=== PATIENT | male | born 1995 | race Caucasian/White ===

== ENCOUNTER 2023-06-12 11:45 | Emergency (ER) | payer OTHER, SELFPAY ==
[2023-06-12 12:00] VITALS: BP 129/90; PULSE 76; RESP 16; TEMP 37; O2SAT 99; BMI 32.5
--- NOTE | 2023-06-12 12:09 | ED.BACK ---
HPI - Back Pain/Injury General Chief Complaint: Back Pain/Injury Stated Complaint: Back Pain; Incontinence Time Seen by Provider: 06/12/23 12:05 Source: patient and EMS History of Present Illness HPI Narrative: Patient 20-year-old male presents today from the [facility] concern for cauda equina. He has had ongoing back pain for the last 3 weeks. However for 2 weeks he has had stool incontinence. He has had difficulty with getting erections as well but he denies any urinary incontinence. He has some decreased sensation in his inner thigh. He sometimes has some difficulty walking. He has not in any sort of severe pain. He has not had any fever. He denies any injury he says it just started hurting. Related Data Previous Rx's Medication Instructions Recorded gabapentin 300 mg capsule 300 mg PO BEDTIME #30 caps 06/12/23 prednisone 20 mg tablet 40 mg (2 x 20 mg) PO DAILY #10 tabs 06/12/23 Allergies Allergy/AdvReac Type Severity Reaction Status Date / Time No Known Drug Allergies Allergy Verified 06/12/23 11:59 Patient History Social History Smoking Status: Current every day smoker Smoking Status: Current every day smoker tobacco type: cigarettes alcohol intake frequency: holidays/special occasions only Substance Use Type: does not use Exam Initial Vital Signs Initial Vital Signs: Vital Signs Temperature 98.6 F 06/12/23 12:00 Pulse Rate 76 06/12/23 12:00 Respiratory Rate 16 06/12/23 12:00 Blood Pressure 129/90 06/12/23 12:00 Pulse Oximetry 99 06/12/23 12:00 Oxygen Delivery Method Room Air 06/12/23 12:00 GENERAL: Alert pleasant 20-year-old and in no acute distress. HEENT: Head atraumatic,EOMI, pupils reactive, face symmetric, moist mucous membranes CARDIOVASCULAR: Regular rate and rhythm without murmurs, rubs or gallops. RESPIRATORY: Breath sounds equal bilaterally, no wheezes rales or rhonchi. ABDOMEN: Soft, nontender. Normoactive bowel sounds all 4 quadrants. No guarding or rebound. EXTREMITIES: Normal range of motion, no clubbing or edema. Neurovascularly intact NEUROLOGICAL: Alert and oriented x4.Normal gait and speech. Cranial nerves intact no real decreased sensation to pin point and medial thighs or lower extremity SKIN: Warm, dry, no laceration, no petechiae, no rashes or lesions. Course Orders Ordered: ED Orders 06/12/23 12:04 CBC Auto Diff [Complete Blood Count AUTO DIFF] Stat CMP [Comprehensive Metabolic Panel] Stat 06/12/23 12:15 MR lumbar spine wo/w con Stat Discontinued Medications Ketorolac Tromethamine (Ketorolac 30 Mg/Ml Vial) 15 mg IV NOW ONE Stop: 06/12/23 12:17 Last Admin: 06/12/23 12:21 Dose: 15 mg Documented By: DIANA Vital Signs Vital signs: Vital Signs - 8 hr 06/12/23 12:00 06/12/23 12:17 06/12/23 12:18 Temperature 98.6 F Pulse Rate 76 83 74 Respiratory Rate 16 Blood Pressure 129/90 Pulse Oximetry 99 99 97 Oxygen Delivery Method Room Air 06/12/23 12:18 06/12/23 12:30 06/12/23 12:30 Temperature Pulse Rate 85 Respiratory Rate Blood Pressure 123/82 121/80 Pulse Oximetry 93 Oxygen Delivery Method 06/12/23 13:00 06/12/23 13:00 06/12/23 15:38 Temperature 98.6 F Pulse Rate 80 63 Respiratory Rate 16 Blood Pressure 114/80 144/87 H Pulse Oximetry 96 97 Oxygen Delivery Method Room Air MDM - Back Pain/Injury Lab Data 06/12/23 12:04 06/12/23 12:04 Labs: Lab Results 06/12/23 Range/Units 12:04 WBC 7.4 (4.5-11.0) X10^3/uL RBC 5.20 (4.5-5.9) X10^6/uL Hgb 14.8 (13.5-17.5) g/dL Hct 43.8 (41-53) % MCV 84.3 (80-100) fL MCH 28.5 (26-34) PG MCHC 33.8 (30-36) % RDW 13.7 (11.6-14.8) % Plt Count 429 H (150-400) X10^3/uL Neut % (Auto) 56.1 (50-75) % Lymph % (Auto) 33.3 (25-40) % Shoshone % (Auto) 7.7 (3-14) % Eos % (Auto) 2.2 (2-4) % Baso % (Auto) 0.7 (0-2) % Neut # (Auto) 4100 (1682-8578) /uL Lymph # (Auto) 2500 (6683-3448) /uL Shoshone # (Auto) 600 (0-900) /uL Eos # (Auto) 200 (0-450) /uL Baso # (Auto) 0 (0-100) /uL Sodium 139 (137-145) mmol/L Potassium 4.0 (3.4-5.1) mmol/L Chloride 105 (98-107) mmol/L Carbon Dioxide 27 (22-32) mmol/L BUN 10 (9-20) mg/dL Creatinine 0.81 (0.66-1.25) mg/dL Estimated GFR > 60 (>60) mL/min BUN/Creatinine Ratio 12.3 (6-22) Glucose 97 (70-100) mg/dL Calcium 9.7 (8.4-10.2) mg/dL Total Bilirubin 0.7 (0.2-1.3) mg/dL AST 62 H (17-59) IU/L ALT 104 H (<50) IU/L Alkaline Phosphatase 53 (38-126) U/L Total Protein 8.5 H (6.3-8.2) g/dL Albumin 5.0 (3.5-5.0) g/dL Globulin 3.5 (1.7-4.1) g/dL Albumin/Globulin Ratio 1.4 (1.0-2.8) Imaging Data MR Lumbar spine: Radiologist's Impression: PROCEDURE: MR LUMBAR SPINE WO/W CON INDICATIONS: back pain the stool incontinence TECHNIQUE: Noncontrast sagittal T1 spin echo and T2 fast echo, sagittal STIR, and T2 fast spin echo through the lumbar spine. In cases with scoliosis, additional coronal T2 fast spin echo may be performed. COMPARISON: None. FINDINGS: Image quality: Excellent. Alignment and Curvature: There is normal bony alignment. Bone Marrow: Marrow is of normal overall signal. No acute vertebral body compression fractures. Spinal Cord: Conus medullaris terminates at the L1 level. Visualized cord demonstrates normal signal and size. Paraspinous Soft Tissues: No paravertebral masses. T12-L1: Normal appearance. L1-L2: Normal appearance. L2-L3: Normal appearance. L3-L4: Normal appearance. L4-L5: Mild to moderate degenerative disc height reduction and disc desiccation with a posterior transverse disc bulge that is slightly greater on the left than the right and demonstrates a small inferior border midline annular tear. No extruded disc material is associated. No impingement on the cauda equina is present. Within the low thoracic cord and conus medullaris no lesion is seen.. L5-S1: Normal appearance. IMPRESSION: L4-L5 [id number] degenerative disc disease with a posterior transverse disc bulge slightly greater on the left than the right and with a small midline annular tear at the inferior border of the disc annulus posteriorly. No extruded disc material is seen, impingement on the conus medullaris or cauda equina is not found. Dictated by: Rashid Caldwell M.D. on 06/12/2023 at 15:06 MDM Narrative Medical decision making narrative: Patient well-appearing 28-year-old male who presents with ongoing back pain for last couple of weeks. Pain is not any worse today however he does swollen incontinence no urinary incontinence or urinary retention. Blood work has been reviewed overall no clinical significant abnormality MRI has been reviewed no evidence of cauda equina but does show annular tears along with degenerative disc disease and a posterior Gallardo versus disc bulge left greater than the right Patient has no evidence of cauda equina on MRI. Recommend outpatient follow-up Discharge Plan Departure Patient Disposition: Home Clinical Impression: Degenerative disc disease Instructions: DI for Low Back Pain Activity Restrictions/Additional Instructions: *You have been diagnosed with degenerative disc disease along with bulging disc and small tear *What to do: [place] [facility] probably have limited activity until this heals. You may require orthopedic referral as well *Continue to take medications as directed Prednisone 40 mg once a day for 5 days (do not combine with ibuprofen or NSAIDs) Tylenol 1000 mg every 6 hours for [id number] pain Gabapentin 300 mg at nighttime *Follow up with your primary care provider in 2-3 days or call [phone] *Return to ER if you should have increasing pain numbness tingling injury or any new, worsening or concerning symptoms Prescriptions: New prednisone 20 mg tablet 40 mg PO DAILY Qty: 10 0RF gabapentin 300 mg capsule 300 mg PO BEDTIME Qty: 30 0RF Referrals: Miscellaneous,[facility] [Non-Staff] - Stand Alone Forms: Patient Portal/API
--- NOTE | 2023-06-12 12:15 | DI.MRI.S_ITS ---
PROCEDURE: MR LUMBAR SPINE WO/W CON INDICATIONS: back pain the stool incontinence TECHNIQUE: Noncontrast sagittal T1 spin echo and T2 fast echo, sagittal STIR, and T2 fast spin echo through the lumbar spine. In cases with scoliosis, additional coronal T2 fast spin echo may be performed. COMPARISON: None. FINDINGS: Image quality: Excellent. Alignment and Curvature: There is normal bony alignment. Bone Marrow: Marrow is of normal overall signal. No acute vertebral body compression fractures. Spinal Cord: Conus medullaris terminates at the L1 level. Visualized cord demonstrates normal signal and size. Paraspinous Soft Tissues: No paravertebral masses. T12-L1: Normal appearance. L1-L2: Normal appearance. L2-L3: Normal appearance. L3-L4: Normal appearance. L4-L5: Mild to moderate degenerative disc height reduction and disc desiccation with a posterior transverse disc bulge that is slightly greater on the left than the right and demonstrates a small inferior border midline annular tear. No extruded disc material is associated. No impingement on the cauda equina is present. Within the low thoracic cord and conus medullaris no lesion is seen.. L5-S1: Normal appearance. IMPRESSION: L4-L5 [id number] degenerative disc disease with a posterior transverse disc bulge slightly greater on the left than the right and with a small midline annular tear at the inferior border of the disc annulus posteriorly. No extruded disc material is seen, impingement on the conus medullaris or cauda equina is not found. Dictated by: Rashid Caldwell M.D. on 06/12/2023 at 15:06 Approved by: Rashid Caldwell M.D. on 06/12/2023 at 15:09
[2023-06-12 12:17] VITALS: PULSE 83; O2SAT 99
[2023-06-12 12:18] VITALS: BP 123/82; PULSE 74; O2SAT 97
[2023-06-12 12:21] LABS: Add Manual Diff / Slide Review NO; Basophils Absolute Auto 0 /uL (0-100); Basophils Percent Auto 0.7 % (0-2); Eosinophils Absolute Auto 200 /uL (0-450); Eosinophils Percent Auto 2.2 % (2-4); Hematocrit 43.8 % (41-53); Hemoglobin 14.8 g/dL (13.5-17.5); Lymphocytes Absolute Auto 2500 /uL (1100-4500); Lymphocytes Percent Auto 33.3 % (25-40); Mean Corpuscular HGB Conc 33.8 % (30-36); Mean Corpuscular Hemoglobin 28.5 PG (26-34); Mean Corpuscular Volume 84.3 fL (80-100); Monocytes Absolute Auto 600 /uL (0-900); Monocytes Percent Auto 7.7 % (3-14); Neutrophils Absolute Auto 4100 /uL (1500-7000); Neutrophils Percent Auto 56.1 % (50-75); Platelet Count 429 X10^3/uL (150-400); Red Cell Distribution Width 13.7 % (11.6-14.8); White Blood Cell Count 7.4 X10^3/uL (4.5-11.0)
[2023-06-12] MEDS: KETOROLAC 30 MG/ML VIAL 15 MG IV (12:21)
[2023-06-12 12:28] LABS: Alanine Aminotransferase 104 IU/L (<50); Albumin Globulin Ratio 1.4 (1.0-2.8); Alkaline Phosphatase 53 U/L (38-126); Aspartate Aminotransferase 62 IU/L (17-59); BUN Creatinine Ratio 12.3 (6-22); Bilirubin Total 0.7 mg/dL (0.2-1.3); Blood Urea Nitrogen 10 mg/dL (9-20); Calcium 9.7 mg/dL (8.4-10.2); Carbon Dioxide 27 mmol/L (22-32); Chloride 105 mmol/L (98-107); Estimated Glomerular Filt Rate > 60 mL/min (>60); Globulin 3.5 g/dL (1.7-4.1); Glucose 97 mg/dL (70-100); HEMOLYSIS < 15 (0-50); Sodium 139 mmol/L (137-145); Total Protein 8.5 g/dL (6.3-8.2)
[2023-06-12 12:30] VITALS: BP 121/80; PULSE 85; O2SAT 93
[2023-06-12 13:00] VITALS: BP 114/80; PULSE 80; O2SAT 96
[2023-06-12 15:38] VITALS: BP 144/87; PULSE 63; RESP 16; TEMP 37; O2SAT 97
== END 2023-06-12 15:40 | disposition home or self-care (01) ==
PROVIDERS: Emergency Provider Emergency Medicine; PCP Family Medicine
DX: M51.36 Other intervertebral disc degeneration, lumbar region (principal)
CPT/HCPCS: 36415; 72158; 80053; 85025; 96374; 99284; J1885